=== PATIENT | female | born 1990 | race African-American/Black ===

== ENCOUNTER 2018-07-17 06:05 | Emergency (ER) | payer BC, OTHER ==
[~2018-07-17] VITALS: Ht 170.2 cm; Wt 73.5 kg
[~2018-07-17 06:05] MED LIST: ACETAMINOPHEN500 M3 ORAL; FLAGYL500 MG ORAL; GYNE-LOTRIMIN21 GM VG; NITROFURANTOIN100 M2 ORAL
[2018-07-17] MEDS ORDERED: PREDNISONE20 MG ORAL (08:08)
[2018-07-17] MEDS ORDERED: DULERA 200 MCG/13 GM IH (08:18)
[2018-07-17] MEDS ORDERED: VENTOLIN HFA18 GM INH (08:18)
--- NOTE | 2018-07-17 08:18 | Emergency Room Report ---
History of Present Illness General Chief Complaint: Allergic Reaction Source: Patient Present Illness HPI This patient here b/c allergic rxn since last night. Papaya juice? That is new. She has a long history allergic rxn. Took total of four Benadryl. Improved but still itchy. She has epipen but did not feel necessary to use. Has not been on steroids for ?a long time. Can breathe fine, no sob, no cough, no wheeze. Allergies: Coded Allergies: BANANA (Verified Allergy, Severe, 09/22/13) IBUPROFEN (Verified Allergy, Unknown, 09/22/13) PAPAYA (Verified Allergy, Unknown, 07/17/18) Uncoded Allergies: beans (Allergy, Unknown, 09/22/13) Patient History Last Menstrual Period: June 20 Now: No : 2 Para: 1 Nursing Documentation-[facility] [place] Past Medical History: No Stated History Hx Asthma: Yes Review of Systems Constitutional: Reports: no symptoms Eye: Reports: no symptoms ENT: Reports: no symptoms Respiratory: Reports: no symptoms Cardiovascular: Reports: no symptoms Gastrointestinal: Reports: no symptoms Genitourinary: Reports: no symptoms Musculoskeletal: Reports: no symptoms Skin: Reports: other - itchy Psychiatric: Reports: no symptoms Neurological: Reports: no symptoms Endocrine: Reports: no symptoms Hematologic/Lymphatic: Reports: no symptoms Allergic: Reports: no symptoms All Other Systems: negative except mentioned in HPI Physical Exam Vital Signs Date Time Temp Pulse Resp B/P (MAP) Pulse Ox O2 Delivery O2 Flow Rate FiO2 07/17/18 06:18 98.2 87 20 121/81 97 Room Air 98.2 Sp02 EP Interpretation: reviewed, normal General Appearance: normal inspection, well appearing, no apparent distress, alert, GCS 15, non-toxic Head: normocephalic, atraumatic Eyes: bilateral eye normal inspection, bilateral eye PERRL, bilateral eye EOMI ENT: normal ENT inspection, hearing grossly normal, normal pharynx, no angioedema, normal voice, moist mucus membranes, other - very mild (slight) edema uvula Neck: normal inspection, full range of motion, supple, no meningismus, no bony tend Respiratory: normal inspection, lungs clear, normal breath sounds, no rhonchi, no respiratory distress, no retraction, no accessory muscle use, no wheezing Cardiovascular #1: normal inspection, regular rate, rhythm, no edema Gastrointestinal: normal inspection, normal bowel sounds, non tender, soft, no mass, non-distended Musculoskeletal: gait/station normal, normal range of motion Neurologic: normal inspection, alert, oriented x3, responsive, motor strength/ tone normal Psychiatric: normal inspection, judgement/insight normal, memory normal Suicide Risk Assessment: Suicidal Ideation: No Had intent to initiate attempt: No Pt's plan for suicide attempt: No Has means to complete attempt: No Skin: normal inspection, normal color, no rash, warm/dry Medical Decision Making Diagnostic Impression: Primary Impression: Allergic reaction Last Vital Signs Date Time Temp Pulse Resp B/P (MAP) Pulse Ox O2 Delivery O2 Flow Rate FiO2 07/17/18 06:18 98.2 87 20 121/81 97 Room Air 98.2 Disposition: HOME, SELF-CARE Condition: Improved Scripts Mometasone/Formoterol (DULERA 200 MCG/5 MCG INHALER) 13 Gm Hfa.aer.ad 13 GM IH BID, #1 INH 5 Refills Prov: Prabhjot Garcia M.D. 07/17/18 Albuterol Sulfate (VENTOLIN HFA) 18 Gm Hfa.aer.ad 1 PUFF INH EVERY 6 HOURS, #18 GM 5 Refills Prov: Prabhjot Garcia M.D. 07/17/18 Prednisone* (PREDNISONE*) 20 Mg Tablet 40 MG ORAL DAILY, #5 TAB Prov: Prabhjot Garcia M.D. 07/17/18 Referrals: NOT CHOSEN ENRIQUE/,REFERRING (PCP) Patient Instructions: Allergies Prabhjot Garcia M.D. Jul 17, 2018 08:18
[2018-07-17 08:45] VITALS: BP 121/81
== END 2018-07-17 08:45 | disposition home or self-care (01) ==
LOC: EMR 06:39
DX: T78.40XA Allergy, unspecified, initial encounter (principal); X58.XXXA Exposure to other specified factors, initial encounter; Z88.6 Allergy status to analgesic agent; Z91.018 Allergy to other foods
CPT/HCPCS: 99282; J7512

== ENCOUNTER 2018-10-08 12:24 | Emergency (ER) | payer BC, OTHER ==
[~2018-10-08] VITALS: Ht 170.2 cm; Wt 59.0 kg
[~2018-10-08 12:24] MED LIST changes: +DULERA 200 MCG/13 GM IH; +PREDNISONE20 MG ORAL; +VENTOLIN HFA18 GM INH
--- NOTE | 2018-10-08 13:05 | Emergency Room Report ---
History of Present Illness General Chief Complaint: Chest Pain Source: Patient Present Illness HPI Patient present with complaints of right upper chest pain Reports that ongoing for the past 2 weeks Denies any shortness of breath Denies any cough Patient reports that she does have history of asthma Her mom felt that this might be related to asthma however patient does not feel any respiratory discomfort Pain is worse with positional changes moving her right shoulder Denies any recent travel or trauma Allergies: Coded Allergies: BANANA (Verified Allergy, Severe, 09/22/13) IBUPROFEN (Verified Allergy, Unknown, 09/22/13) PAPAYA (Verified Allergy, Unknown, 07/17/18) Uncoded Allergies: beans (Allergy, Unknown, 09/22/13) Patient History Past Medical History: see triage record Pertinent Family History: none Last Menstrual Period: 09/21/18 Now: No Reviewed Nursing Documentation: PMH: Agreed; PSxH: Agreed Nursing Documentation-PMH Past Medical History: No History, Except For Hx Asthma: Yes - BRONCHITIS Review of Systems All Other Systems: negative except mentioned in HPI Physical Exam Vital Signs Date Time Temp Pulse Resp B/P (MAP) Pulse Ox O2 Delivery O2 Flow Rate FiO2 10/08/18 12:27 98.6 78 18 130/66 98 Room Air Sp02 EP Interpretation: reviewed, normal General Appearance: well appearing, no apparent distress Head: normocephalic, atraumatic Eyes: bilateral eye PERRL, bilateral eye EOMI ENT: hearing grossly normal, normal pharynx, TMs + canals normal, uvula midline Neck: full range of motion, supple, no meningismus, no bony tend Respiratory: lungs clear, normal breath sounds, no rhonchi, no respiratory distress, no retraction, no accessory muscle use Cardiovascular #1: normal peripheral pulses, regular rate, rhythm, no edema, no gallop, no JVD, no murmur Gastrointestinal: normal bowel sounds, non tender, soft, no mass, no organomegaly, non-distended, no guarding, no hernia, no pulsatile mass, no rebound Genitourinary: no CVA tenderness Musculoskeletal: normal inspection Neurologic: oriented x3, responsive, water inspector III-XII nml as tested, motor strength/ tone normal, sensory intact Psychiatric: mood/affect normal Skin: normal color, no rash, warm/dry, palpation normal Lymphatic: normal inspection, no adenopathy Medical Decision Making Diagnostic Impression: Primary Impression: Chest pain ER Course Patient is a fairly complex patient with multiple differential to consideration including but not limited to cardiac cardiopulmonary and vascular emergencies Patient's scoring is fairly low otherwise consideration for cardiac versus pulmonary embolism is low X-ray and EKG are normal and patient stable for initial conservative outpatient trial EKG Diagnostic Results Rate: normal Rhythm: NSR ST Segments: no acute changes Rhythm Strip Diag. Results EP Interpretation: yes Rate: 67 Rhythm: NSR, no PVC's, no ectopy Chest X-Ray Diagnostic Results Chest X-Ray Diagnostic Results : Chest X-Ray Ordered: Yes # of Views/Limited/Complete: 1 View Indication: Chest Pain EP Interpretation: Yes Interpretation: no consolidation, no effusion, no pneumothorax Impression: No acute disease Electronically Signed by: Ronen Deluca DO Last Vital Signs Date Time Temp Pulse Resp B/P (MAP) Pulse Ox O2 Delivery O2 Flow Rate FiO2 10/08/18 12:36 78 18 Room Air 10/08/18 12:27 98.6 130/66 98 Status: improved Disposition: HOME, SELF-CARE Condition: Improved Scripts Acetaminophen (Tylenol) 325 Mg Tablet 650 MG ORAL Q8HR PRN for Prn Pain/Headache/Temp > 101, #15 TAB 0 Refills Prov: Ronen Deluca DO 10/08/18 Additional Instructions: Patient is provided with the discharge instructions notified to follow up with primary doctor in the next 2-3 days otherwise return to the er with any worsening symptoms. Please note that this report is being documented using [employer] technology. This can lead to erroneous entry secondary to incorrect interpretation by the dictating instrument. Ronen Deluca DO Oct 08, 2018 13:05
--- NOTE | 2018-10-08 13:27 | Diagnostic Imaging Report ---
Indication: Recent chest pain Technique: One view of the chest Comparison: none Findings: Lungs and pleural spaces are clear. The heart size is normal. Bones are unremarkable Impression: No acute process
[2018-10-08 13:39] VITALS: BP 113/68
[2018-10-08] MEDS ORDERED: TYLENOL325 MG ORAL (13:51)
[2018-10-08 13:56] VITALS: BP 113/68
== END 2018-10-08 13:56 | disposition home or self-care (01) ==
LOC: EMR 13:33
DX: R07.89 Other chest pain (principal); J45.998 Other asthma; Z88.6 Allergy status to analgesic agent
CPT/HCPCS: 71045; 93005; 99283